=== PATIENT | male | born 1940 | race Caucasian/White ===

== ENCOUNTER 2018-03-18 08:30 | Outpatient (CLI) | payer MEDICARE, OTHER ==
[~2018-03-18] VITALS: Ht 180.3 cm; Wt 83.9 kg
[2018-03-18 09:16] LABS: TOTAL HEMOGLOBIN 13.7 G/dl (14.0-18.0)
[2018-03-18] MEDS ORDERED: albuterol 2.5 MG/3 ML nebule NEB ONE (10:00)
== END 2018-03-18 23:59 | disposition home or self-care (01) ==
LOC: RT 08:30
PROVIDERS: ATTEND Internal Medicine Pulmonary Disease
DX: J98.6 Disorders of diaphragm (principal); R06.00 Dyspnea, unspecified
CPT/HCPCS: 85018; 94060; 94640; 94727; 94729

== ENCOUNTER 2018-05-23 10:28 | Outpatient (CLI) | payer MEDICARE, OTHER | END 2018-05-23 23:59 | disposition home or self-care (01) | LOC: RT 10:28 | PROVIDERS: ATTEND Internal Medicine Pulmonary Disease | DX: J44.9 Chronic obstructive pulmonary disease, unspecified (principal); E11.9 Type 2 diabetes mellitus without complications; K21.9 Gastro-esophageal reflux disease without esophagitis | CPT/HCPCS: 94618 ==

== ENCOUNTER 2021-12-29 10:50 | Day surgery (SDC) | payer MEDICARE, OTHER ==
[~2021-12-29] VITALS: Ht 175.3 cm; Wt 84.1 kg
[2021-12-29] MEDS ORDERED: LIDOcaine 1%/PF 5ML 10 MG/ML VIAL SQ ONE (11:15)
[2021-12-29 11:22] VITALS: BP 128/66
[2021-12-29] MEDS ORDERED: GABA300C PO (11:39)
[2021-12-29] MEDS ORDERED: MV-M1CAP15 PO (11:39)
[2021-12-29] MEDS ORDERED: fish oil PO (11:39)
[2021-12-29] MEDS ORDERED: FINA5TAB11 PO (11:39)
[2021-12-29] MEDS ORDERED: UBID100C16 PO (11:39)
[2021-12-29] MEDS ORDERED: AMA1T PO (11:39)
[2021-12-29] MEDS ORDERED: LEVO125T8 PO (11:39)
[2021-12-29] MEDS ORDERED: [UNRECOGNIZED DRUG - CODE] PO (11:39)
[2021-12-29] MEDS ORDERED: [UNRECOGNIZED DRUG - CODE] PO (11:39)
[2021-12-29] MEDS ORDERED: METF-1203 PO (11:44)
[2021-12-29] MEDS ORDERED: ROSU40TA22 PO (11:44)
[2021-12-29] MEDS ORDERED: SERT-434 PO (11:44)
[2021-12-29] MEDS ORDERED: PANT40TA54 PO (11:44)
[2021-12-29 11:55] VITALS: BP 114/89
[2021-12-29 12:05] VITALS: BP 125/76
[2021-12-29 12:20] VITALS: BP 113/61
[2021-12-29 12:35] VITALS: BP 120/83
== END 2021-12-29 13:00 | disposition home or self-care (01) ==
LOC: SSTAY O 10:50
PROVIDERS: ATTEND Radiology Diagnostic Radiology
DX: N28.1 Cyst of kidney, acquired (principal); E11.9 Type 2 diabetes mellitus without complications; E03.9 Hypothyroidism, unspecified; I10 Essential (primary) hypertension; Z88.0 Allergy status to penicillin; Z79.899 Other long term (current) drug therapy
CPT/HCPCS: 50390; 76942; 87070; J3490